=== PATIENT | male | born 1965 | race Caucasian/White ===

== ENCOUNTER 2017-09-11 15:05 | Emergency (ER) | payer OTHER ==
[~2017-09-11] VITALS: Ht 182.9 cm; Wt 72.7 kg
[~2017-09-11 15:05] MED LIST: BACT800T5 PO; OMEP20CA5 PO
[2017-09-11 15:07] VITALS: BP 134/89; PULSE 68; RESP 14; TEMP 98.6; O2SAT 96
--- NOTE | 2017-09-11 16:42 | PD ---
HPI Chief Complaint: Eye Problems/Injury Time Seen by Provider: 16:16 Travel History International Travel<30 days: Yes Contact w/Intl Traveler<30days: Yes Name of Country Traveled to: [facility] Traveled to known affect area: No History of Present Illness HPI 52-year-old male complains of vision problem from the left eye. Patient states that he started having a lot of floaters and flashing lights in front of the left eye yesterday. Patient started having grayish vision loss on the bottom half of left eye visual field. Patient denies any headache. Patient denies any nausea vomiting. Patient denies any eye problem previously. Patient states that he had a minor injury to left eyelid about 6 months ago. Patient wears reading glasses daily. Patient denies any history hypertension, diabetes. PFSH Past Medical History Cancer: No Cardiovascular Problems: No Diminished Hearing: No Endocrine: No GERD: Yes Genitourinary: No Immune Disorder: No Musculoskeletal: Yes Neurologic: No Psychiatric: No Reproductive: No Respiratory: No Past Surgical History Abdominal Surgery: Yes (APPENDECTOMY) Appendectomy: Yes Social History Alcohol Use: No Tobacco Use: No Substance Use: No Allergies-Medications (Allergen,Severity, Reaction): Coded Allergies: penicillin G (Unverified Allergy, Intermediate, 09/11/17) Reported Meds & Prescriptions Reported Meds & Active Scripts Active Bactrim DS (Sulfamethoxazole-Trimethoprim DS) 1 Tab Tab 1 Tab PO BID Prilosec 20 mg (Omeprazole) 20 Mg Capcr 20 Mg PO DAILY Review of Systems General / Constitutional: No: Fever Eyes: Positive: Visual changes HENT: No: Headaches Cardiovascular: No: Chest Pain or Discomfort Respiratory: No: Shortness of Breath Gastrointestinal: No: Abdominal Pain Genitourinary: No: Dysuria Musculoskeletal: No: Pain Skin: No Rash Neurologic: No: Weakness Psychiatric: No: Depression Endocrine: No: Polydipsia Hematologic/Lymphatic: No: Easy Bruising Physical Exam Narrative GENERAL: Well-nourished, well-developed patient. SKIN: Focused skin assessment warm/dry. HEAD: Normocephalic. EYES: No scleral icterus. No injection or drainage. Patient has blackish deep blue discoloration of the upper half of the left eye retina. NECK: Supple, trachea midline. No JVD or lymphadenopathy. CARDIOVASCULAR: Regular rate and rhythm without murmurs, gallops, or rubs. RESPIRATORY: Breath sounds equal bilaterally. No accessory muscle use. GASTROINTESTINAL: Abdomen soft, non-tender, nondistended. MUSCULOSKELETAL: No cyanosis, or edema. BACK: Nontender without obvious deformity. No CVA tenderness. Neurologic exam normal. Data Data Last Documented VS Vital Signs Date Time Temp Pulse Resp B/P (MAP) Pulse Ox O2 Delivery O2 Flow Rate FiO2 09/11/17 15:07 98.6 68 14 134/89 (104) 96 Room Air MDM Medical Decision Making Medical Screen Exam Complete: Yes Emergency Medical Condition: Yes Differential Diagnosis Differential diagnosis including retinal detachment, vitous separation. Narrative Course 52-year-old male with floaters and flashing lights and then vision loss inferior visual field of the left eye. Examination consistent with retinal detachment. I spoke with plaster pattern caster Dr. Herndon. Patient will be seen tomorrow in the office. Diagnosis Primary Impression: Retinal detachment Qualified Codes: H33.22 - Serous retinal detachment, left eye Additional Instructions: Follow-up with Dr. Herndon, plaster pattern caster in a.m. Med/Other Pt SpecificInfo: No Meds Exist/No RX given Disposition: 01 DISCHARGE HOME Condition: Stable Emanuel Patel MD Sep 11, 2017 16:41
[2017-09-13] MEDS ORDERED: PRIL20TA2 (12:28)
== END 2017-09-11 17:00 | disposition home or self-care (01) ==
LOC: NEPD 15:05
DX: H33.22 Serous retinal detachment, left eye (principal); K21.9 Gastro-esophageal reflux disease without esophagitis
CPT/HCPCS: 99281

== ENCOUNTER → 2017-09-13 | Day surgery (SDC) | payer OTHER ==
[~2017-09-13] VITALS: Ht 182.9 cm; Wt 77.5 kg
[~2017-09-13] MED LIST changes: +*morphine SULFATE 4 MG/ML PERIprocedure ONLY ONE; +ACETAMINOPHEN 500 MG CPLT PO PRN; +ATROPINE SULFATE 1% OPHT SOLN 2 ML BTL ONE; +BALANCED SALT SOLN OPHT IRRIG 15 ML BTL ONE; +CHLORHEXIDINE GLUCONATE 2 % 1 PACK (2 CLOTHS) TOPICAL PRN; +DEXAMETHASONE SOD PHOS 4 MG/ML VIAL ONE; +DO NOT ADM ANY ANTICOAGULANT DRUGS PRN; +EPINEPHrine HCL (1:1000) 1 MG/ML VIAL ONE; +LACTATED RINGER'S 1000 ML IV PRN; +METOPROLOL TARTRATE 25 MG TAB PO PRN; +MIDAZOLAM HCL 2 MG/2 ML VIAL ONE; +ONDANSETRON HCL 4 MG/2 ML VIAL IV PUSH PRN; +ONDANSETRON HCL 4 MG/2 ML VIAL ONE; +POVIDONE IODINE 5% (ANTISEPSIS KIT) 4 APPLICATIONS EACH NARE PRN; +PRIL20TA2; +SODIUM CHLORID 0.9% 500 ML IV PRN; +STERILE WATER FOR INJECTION 20 ML VIAL ONE; +TOBRAMYCIN/DEXAMETHASONE OPTH OINT 3.5 GM TUBE ONE; +TRIAMCINOLONE ACETONIDE/PF 40 MG/ML OPTH VIAL ONE; +ceFAZolin INJ 1,000 MG VIAL ONE; +oxyCODONE/ACETAMINOPHEN 5 MG/325 MG TAB ONE; +oxyCODONE/ACETAMINOPHEN 5 MG/325 MG TAB PO PRN
[2017-09-13] MEDS: ATROPINE SULFATE 1% OPHT SOLN 5 ML BTL LEFT EYE SCH ×4 (12:55→13:40)
[2017-09-13] MEDS: CYCLOPENTOLATE HCL 1% OPHT SOLN 2 ML BTL LEFT EYE SCH ×4 (12:55→13:40)
[2017-09-13] MEDS: TROPICAMIDE 1% OPHT SOLN 15 ML BTL LEFT EYE SCH ×4 (12:55→13:40)
[2017-09-13] MEDS: PHENYLEPHRINE HCL 2.5% OPTH SOLN 2 ML BTL LEFT EYE SCH ×4 (12:55→13:40)
[2017-09-13 13:13] LABS: AUTOMATED NEUTROPHIL # 5.8 TH/MM3 (1.8-7.7); BASOPHIL # 0.1 TH/MM3 (0-0.2); BASOPHIL % 0.8 % (0.0-2.0); EOSINOPHIL # 0.2 TH/MM3 (0-0.4); EOSINOPHIL % 2.3 % (0.0-4.0); HEMATOCRIT 39.9 % (39.0-51.0); HEMOGLOBIN 14.5 GM/DL (13.0-17.0); LYMPH % 23.1 % (9.0-44.0); MEAN CELL VOLUME 90.1 FL (80.0-100.0); MEAN CORPUSCULAR HEMOGLOBIN 32.7 PG (27.0-34.0); MEAN PLATELET VOLUME 8.4 FL (7.0-11.0); MONO % 6.6 % (0.0-8.0); MONOCYTE # 0.6 TH/MM3 (0-0.9); NEUT % 67.2 % (16.0-70.0); PLATELET COUNT 209 TH/MM3 (150-450); RED BLOOD COUNT 4.43 MIL/MM3 (4.50-5.90); RED CELL DISTRIBUTION WIDTH 13.5 % (11.6-17.2); WHITE BLOOD COUNT 8.6 TH/MM3 (4.0-11.0)
[2017-09-13 13:17] LABS: MEAN CORPUSCULAR HGB CONC 36.3 % (32.0-36.0)
[2017-09-13 18:40] VITALS: BP 131/84; PULSE 54; RESP 16; TEMP 99.7; O2SAT 97
--- NOTE | 2017-09-14 10:18 | EKG ---
Date Performed: 09/13/2017 Time Performed: 13:53:07 PTAGE: 52 years EKG: SINUS BRADYCARDIA WITH FIRST DEGREE AV BLOCK ABNORMAL ECG NO PREVIOUS TRACING DOCTOR: Flavio Miller Interpretating Date/Time 09/14/2017 10:17:27
--- NOTE | 2017-09-17 09:22 | MP ---
cc: MAGY SHOEMAKER M.D. DATE OF SURGERY: 09/13/2017 PREOPERATIVE DIAGNOSIS Rhegmatogenous retinal detachment with multiple tears, left eye. POSTOPERATIVE DIAGNOSIS Rhegmatogenous retinal detachment with multiple tears, left eye. PROCEDURE Trans pars plana vitrectomy with endolaser photocoagulation and gas fluid exchange, left eye. SURGEON Dr. Magy Shoemaker. ANESTHESIA General laryngeal mask anesthesia. INDICATION Mr. Shipley is a 52-year-old gentleman who presented with a macula off retinal detachment on 09/12/2017 in his left eye. He gives a history of having been hit by a nail which ricocheted off concrete from a nail gun and hit his left eye approximately 6 months ago. He experienced floaters, however, he did not seek any medical evaluation as the floaters got better and then he lost vision over the weekend September 08 with a shade coming over his vision inferonasally in left eye. He was found to have a macula off retinal detachment from approximately 1 to 4:30 o'clock with multiple posterior tears. It was recommended he undergo a surgery to try and repair the retinal detachment and he wished to proceed and informed consent was obtained. PROCEDURE He was brought to [facility] on 09/13/2017 and on the eye [facility]. Appropriate anesthesia monitoring devices were applied and he was placed under general anesthesia using a laryngeal mask. The left eye was identified as the operative site and then prepped and draped in the usual sterile fashion. A lid speculum was placed. At this point an appropriate time-out was called with the surgical team agreeing to the proposed procedure and surgical site. The microscope was brought around and adjusted using the Harley valved vitrectomy system. The trocar cannulas were placed 4 mm posterior to the limbus. The first was placed at approximately 4 o'clock and verified to be in the posterior chamber. An infusion cannula was affixed to it and it was turned on. Two additional trocar cannulas were placed at approximately 10 and 2 o'clock. The eye was entered with the Endoilluminator light pipe and vitrectomy cutter and using the biome wide angle viewing system and the flat contact lens for visualization, a vitrectomy was carried out. The bullous retinal detachment superotemporally became flatter as the vitrectomy ensued and then the retina basically flattened after the traction on the tears was relieved. Endolaser photocoagulation was performed around the periphery with a power of 350 to 400 milliwatts and 0.15 exposure. One area at about 1 o'clock was not completely flat and this will be lasered postoperatively. An air-fluid exchange was performed followed by exchange of the air for a 15% mixture of C3F8 gas. The trocar cannulas were removed one by one with tamponade of the site with a cotton swab and diathermy to the overlying conjunctival wound. The eye was left with good pressure and no visible air leaks. Atropine drops were placed in the eye and subconjunctival injections of Ancef 125 mg and Decadron 2 mg in half cc were given at separate sites. The lid speculum was removed and the patient was undraped. TobraDex ointment was placed on the cornea and then the left eye was patched and shielded. The patient had the laryngeal mask removed in the room and was returned to recovery in good condition laying on his right side. When he is awake and alert he will begin face-down positioning. MD ED Potts/RAJESH /10:31 AM /9:08 AM
== END | disposition home or self-care (01) ==
LOC: HSDC 10:34
PROVIDERS: ATTEND Ophthalmology
DX: H33.022 Retinal detachment with multiple breaks, left eye (principal); R94.31 Abnormal electrocardiogram [ECG] [EKG]
CPT/HCPCS: 00145; 67113; 85025; 93005; J0171; J0690; J1100; J2250; J2270; J2405; J3010; J7120; J3300